=== PATIENT | male | born 1960 | race African-American/Black ===

== ENCOUNTER 2019-09-05 09:31 | Inpatient (IN) | payer OTHER ==
[2019-09-05 10:09] VITALS: BMI 23.1
--- NOTE | 2019-09-05 11:11 | HP ---
CIWA Score Nausea/Vomitin-Mild Nausea/No Vomiting Muscle Tremors: 1-None Visible, but [place] Anxiety: 4-Mod. Anxious/Guarded Agitation: 4-Moderately Restless Paroxysmal Sweats: 4-Forehead w/Sweat Beads Orientation: 1-Uncertain about Date Tacttile Disturbances: 0-None Auditory Disturbances: 0-None Visual Disturbances: 0-None Headache: 2-Mild CIWA-Ar Total Score: 17 - Admission Criteria OASAS Guidelines: Admission for Medically Managed Detox: Requires at least one of the followin. CIWA greater than 12 2. Seizures within the past 24 hours 3. Delirium tremens within the past 24 hours 4. Hallucinations within the past 24 hours 5. Acute intervention needed for co occurring medical disorder 6. Acute intervention needed for co occurring psychiatric disorder 7. Severe withdrawal that cannot be handled at a lower level of care (continued vomiting, continued diarrhea, abnormal vital signs) requiring intravenous medication and/or fluids 8. Admitting History and Physical - Admission Chief Complaint: "I need help to get off the alcohol and crack that he is using with juan dust" History of Present Illness: 59 year old black male with alcohol dependence with uncomplicated withdrawals. He has been drinking up to 1 pint of alcohol, rum, daily with almost daily blackouts. He is using crack intranasally up to $900 daily, last used yesterday. He smokes ciggarettes 2-3 per day, last smoked today. He is smoking marijuana 1/8 gm per day, $40 daily. PMH: HIV Disease on medications Biktarvy Psurg: None Psych: None. He receives HASA and is a resident in a detention. History Source: Patient Limitations to Obtaining History: No Limitations Admission [facility] Chief Complaint: "I need help to get off the alcohol and crack that he is using with juan dust" Allergies/Adverse Reactions: Allergies Allergy/AdvReac Type Severity Reaction Status Date / Time No Known Allergies Allergy Verified 09/05/19 09:57 History of Present Illness: 59 year old black male with alcohol dependence with uncomplicated withdrawals. He has been drinking up to 1 pint of alcohol, rum, daily with almost daily blackouts. He is using crack intranasally up to $900 daily, last used yesterday. He smokes ciggarettes 2-3 per day, last smoked today. He is smoking marijuana 1/8 gm per day, $40 daily. PMH: HIV Disease on medications Biktarvy Psurg: None Psych: None. He receives HASA and is a resident in a detention. - Ebola screening Have you traveled outside of the country in the last 21 days: No Have you had contact with anyone from an Ebola affected area: No Have you been sick,other than usual withdrawal symptoms: No Do you have a fever: No - Review of Systems Constitutional: Chills, Diaphoresis EENT: reports: No Symptoms Reported Respiratory: reports: No Symptoms reported Cardiac: reports: No Symptoms Reported GI: reports: Nausea, Vomiting : reports: No Symptoms Reported Musculoskeletal: reports: No Symptoms Reported Integumentary: reports: No Symptoms Reported Neuro: reports: No Symptoms reported Endocrine: reports: No Symptoms Reported Hematology: reports: No Symptoms Reported Psychiatric: reports: No Sypmtoms Reported Other Systems: Reviewed and Negative Patient History - Patient Medical History Hx Anemia: No Hx Asthma: No Hx Chronic Obstructive Pulmonary Disease (COPD): No Hx Cancer: No Hx Cardiac Disorders: No Hx Congestive Heart Failure: No Hx Hypertension: No Hx Hypercholesterolemia: No Hx Pacemaker: No HX Cerebrovascular Accident: No Hx Seizures: No Hx Dementia: No Hx Diabetes: No Hx Gastrointestinal Disorders: No Hx Liver Disease: No Hx Genitourinary Disorders: No Hx Sexually Transmitted Disorders: No Hx Renal Disease (ESRD): No Hx Thyroid Disease: No Hx Human Immunodeficiency Virus (HIV): Yes (on Biktarvy) Hx Hepatitis C: No Hx Depression: No Hx Suicide Attempt: No Hx Bipolar Disorder: No Hx Schizophrenia: No - Patient Surgical History Past Surgical History: No - PPD History Previous Implant?: Yes Documented Results: Negative w/o proof Implanted On Prior [facility] Admission?: No Date: 05/15/19 Results: negative PPD to be Administered?: Yes - Smoking Cessation Smoking history: Current every day smoker Have you smoked in the past 12 months: Yes Aproximately how many cigarettes per day: 3 Hx Chewing Tobacco Use: No Initiated information on smoking cessation: Yes 'Breaking Loose' booklet given: 09/05/19 - Substances abused Crack Substance route: Smoking Frequency: Daily Amount used: $300-400 Age of first use: 22 Date of last use: 09/05/19 Alcohol Substance route: Oral Frequency: Daily Amount used: 5th slovenian rum Age of first use: 19 Date of last use: 09/04/19 Other Other (specify): Juan granados Substance route: Smoking Frequency: 1-3 times last 30 days Amount used: 1 bags Age of first use: 18 Date of last use: 09/04/19 Admission Physical Exam [facility] - Vital Signs Vital Signs: Vital Signs - 24 hr 09/05/19 09:57 Temperature 98.2 F Pulse Rate 90 Respiratory 20 Rate Blood Pressure 132/87 - Physical General Appearance: Yes: Mild Distress HEENTM: Yes: EOMI, Hearing grossly Normal, Normal ENT Inspection, Normocephalic , Normal Voice, DANIAL, Pharynx Normal, Tm's normal Neck: Yes: No masses,lesions,Nodules, Supple, Trachea in good position Breast: Yes: Within Normal Limits Abdominal: Yes: Normal Bowel Sounds, Non Tender, Flat, Soft Genitourinary: Yes: Within Normal Limits Back: Yes: Normal Inspection Musculoskeletal: Yes: full range of Motion, Gait Steady Extremities: Yes: Normal Capillary Refill, Normal Inspection, Normal Range of Motion, Non-Tender Neurological: Yes: material planner II-XII NML intact, Fully Oriented, Alert, Motor Strength 5/5, Normal Mood/Affect, Normal Response Integumentary: Yes: Normal Color, Warm Lymphatic: Yes: Within Normal Limits - Diagnostic (1) Alcohol dependence with withdrawal Current Visit: Yes Status: Acute (2) HIV disease Current Visit: Yes Status: Acute (3) Marijuana abuse Current Visit: Yes Status: Acute (4) Cocaine use disorder Current Visit: Yes Status: Acute Screened but not Admitted - Documentation of Visit Screened but not Admitted: No Breathalyzer - Breathalyzer Breathalyzer: 0 Vital Signs - Vital Signs Vital signs refused: No Urine Drug Screen - Test Device Lot number: [id number] Expiration date: 04/13/21 - Control Is test valid?: Yes - Results Drug screen NEGATIVE: No Urine drug screen results: THC-Marijuana, AMNA-Cocaine Inpatient Rehab Admission - Rehab Decision to Admit Inpatient rehab admission?: No
[2019-09-05] MEDS ORDERED: MAGNESIUM CITRATE 300 ML BOTTLE PO PRN (11:24)
[2019-09-05] MEDS ORDERED: BISMUTH SUBSALICYLATE 524 MG/30 ML UD PO PRN (11:24)
[2019-09-05] MEDS ORDERED: ACETAMINOPHEN 325 MG TABLET (FP) PO PRN (11:24)
[2019-09-05] MEDS ORDERED: MAG HYDROX/AL HYDROX/SIMETH 30 ML UNIT-DOSE CUP PO PRN (11:24)
[2019-09-05] MEDS ORDERED: MENTHOL/PHENOL 1 EACH UD MM PRN (11:24)
[2019-09-05] MEDS ORDERED: chlordiazePOXIDE HCL 10 MG CAPSULE PO PRN (11:24)
[2019-09-05] MEDS ORDERED: MAGNESIUM HYDROX 2400MG/30ML ORAL SUSPENSION 30 ML CUP PO PRN (11:24)
[2019-09-05] MEDS ORDERED: IBUPROFEN 400 MG TABLET (FP) PO PRN (11:24)
[2019-09-05] MEDS ORDERED: hydrOXYzine PAMOATE 25 MG CAPSULE (FP) PO PRN (11:24)
[2019-09-05] MEDS: chlordiazePOXIDE HCL 25 MG CAPSULE PO SCH ×2 (13:23→22:22)
[2019-09-05 14:34] LABS: HEMATOCRIT 46.6 % (35.4-49); HEMOGLOBIN 15.7 GM/dL (11.7-16.9); MCHC 33.6 g/dl (32.0-35.9); MEAN CELL VOLUME 89.3 fl (80-96); PLATELET COUNT 266 K/MM3 (134-434); RBC 5.22 M/mm3 (4.00-5.60); RDW 13.8 % (11.9-15.9); WHITE BLOOD COUNT 13.1 K/mm3 (4.0-10.0)
[2019-09-05 14:49] LABS: ALBUMIN 4.2 g/dl (3.4-5.0); BILIRUBIN,TOTAL 0.9 mg/dL (0.2-1); BLOOD UREA NITROGEN 22.1 mg/dL (7-18); CALCIUM 9.1 mg/dL (8.5-10.1); CREATININE 1.2 mg/dL (0.55-1.3); POTASSIUM 3.9 mmol/L (3.5-5.1); TOT PROT 8.6 g/dl (6.4-8.2)
[2019-09-05] MEDS: METHOCARBAMOL 500 MG TABLET PO PRN (20:01)
[2019-09-05] MEDS: MELATONIN 5 MG TABLETS PO PRN (22:22)
[2019-09-05] MEDS: THIAMINE HCL 100 MG TABLET (FP) PO SCH (22:22)
[2019-09-06] MEDS: chlordiazePOXIDE HCL 25 MG CAPSULE PO SCH ×3 (05:17→21:05)
[2019-09-06] MEDS: METHOCARBAMOL 500 MG TABLET PO PRN (05:23)
[2019-09-06] MEDS: BICTEGRAV/EMTRICIT/TENOFOV (BIKTARVY) 50-200-25 MG TABLET PO SCH (08:00)
[2019-09-06] MEDS: ACETAMINOPHEN 325 MG TABLET (FP) PO PRN ×2 (08:40→22:23)
[2019-09-06] MEDS: PRENATAL VITAMINS W/ FOLIC ACID TABLET (FP) PO SCH (09:48)
[2019-09-06] MEDS: NICOTINE 7 MG/24 HOURS TOPICAL PATCH TD SCH (09:48)
--- NOTE | 2019-09-06 10:28 | PN ---
[facility] CIWA - CIWA Score Nausea/Vomitin-Mild Nausea/No Vomiting Muscle Tremors: 2 Anxiety: 2 Agitation: 2 Paroxysmal Sweats: 2 Orientation: 0-Oriented Tacttile Disturbances: 1-Very Mild Itch/Numbness Auditory Disturbances: 0-None Visual Disturbances: 0-None Headache: 2-Mild CIWA-Ar Total Score: 12 S Progress Note (SOAP) Subjective: doing well with librium detox regimen ambulating on hallway report taking neutrontin for neurogenic pain health underwriter call [phone] no record found health underwriter call [phone] no answer health underwriter call [phone] # 2 no record begin 100 mg po tid may gradually increase as supportive detox therapy Objective: 09/06/19 10:28 Vital Signs Temperature 96.4 F L 09/06/19 09:33 Pulse Rate 69 09/06/19 09:33 Respiratory Rate 18 09/06/19 09:33 Blood Pressure 113/73 09/06/19 09:33 O2 Sat by Pulse Oximetry (%) Laboratory Last Values WBC 13.1 K/mm3 (4.0-10.0) H 09/05/19 12:10 RBC 5.22 M/mm3 (4.00-5.60) 09/05/19 12:10 Hgb 15.7 GM/dL (11.7-16.9) 09/05/19 12:10 Hct 46.6 % (35.4-49) 09/05/19 12:10 MCV 89.3 fl (80-96) 09/05/19 12:10 MCH 30.0 pg (25.7-33.7) 09/05/19 12:10 MCHC 33.6 g/dl (32.0-35.9) 09/05/19 12:10 RDW 13.8 % (11.9-15.9) 09/05/19 12:10 Plt Count 266 K/MM3 (134-434) 09/05/19 12:10 MPV 9.0 fl (7.5-11.1) 09/05/19 12:10 Sodium 136 mmol/L (136-145) 09/05/19 12:10 Potassium 3.9 mmol/L (3.5-5.1) 09/05/19 12:10 Chloride 101 mmol/L (98-107) 09/05/19 12:10 Carbon Dioxide 24 mmol/L (21-32) 09/05/19 12:10 Anion Gap 11 MMOL/L (8-16) 09/05/19 12:10 BUN 22.1 mg/dL (7-18) H 09/05/19 12:10 Creatinine 1.2 mg/dL (0.55-1.3) 09/05/19 12:10 Est GFR (CKD-EPI)AfAm 76.79 09/05/19 12:10 Est GFR (CKD-EPI)NonAf 66.26 09/05/19 12:10 Random Glucose 97 mg/dL (74-106) 09/05/19 12:10 Calcium 9.1 mg/dL (8.5-10.1) 09/05/19 12:10 Total Bilirubin 0.9 mg/dL (0.2-1) 09/05/19 12:10 AST 43 U/L (15-37) H 09/05/19 12:10 ALT 27 U/L (13-61) 09/05/19 12:10 Alkaline Phosphatase 62 U/L (45-117) 09/05/19 12:10 Total Protein 8.6 g/dl (6.4-8.2) H 09/05/19 12:10 Albumin 4.2 g/dl (3.4-5.0) 09/05/19 12:10 RPR Titer Nonreactive (NONREACTIVE) 09/05/19 12:10 lab noted Assessment: 09/06/19 10:28 alcohol withdrawal sx Plan: continue librium detox regimen
[2019-09-06] MEDS ORDERED: GABAPENTIN 100 MG CAPSULE (FP) PO ONE (10:29)
[2019-09-06] MEDS: GABAPENTIN 100 MG CAPSULE (FP) PO SCH ×2 (13:28→21:05)
[2019-09-06] MEDS: THIAMINE HCL 100 MG TABLET (FP) PO SCH (21:05)
[2019-09-06] MEDS: MELATONIN 5 MG TABLETS PO PRN (21:06)
[2019-09-07] MEDS ORDERED: chlordiazePOXIDE 5 MG CAPSULE PO SCH (05:00)
[2019-09-07] MEDS: GABAPENTIN 100 MG CAPSULE (FP) PO SCH (05:59)
[2019-09-07] MEDS: ACETAMINOPHEN 325 MG TABLET (FP) PO PRN (06:03)
[2019-09-07] MEDS: BICTEGRAV/EMTRICIT/TENOFOV (BIKTARVY) 50-200-25 MG TABLET PO SCH (07:05)
[2019-09-07 09:12] VITALS: BP 126/78; PULSE 86; TEMP 97.1
[2019-09-07] MEDS: PRENATAL VITAMINS W/ FOLIC ACID TABLET (FP) PO SCH (09:48)
[2019-09-07] MEDS: NICOTINE 7 MG/24 HOURS TOPICAL PATCH TD SCH (09:48)
[2019-09-07] MEDS: METHOCARBAMOL 500 MG TABLET PO PRN (09:49)
--- NOTE | 2019-09-07 19:29 | DS ---
[facility] Detox Discharge Summary Admission Date: 09/05/19 Discharge Date: 09/07/19 - History Present History: Alcohol Dependence, Cannabis Dependence, Cocaine Dependence Additional Comments: DESPITE EFFORTS BY PERSONAL SECURITY SPECIALIST AND BY NURSING STAFF TO ADDRESS PATIENT'S MEDICAL NEEDS / CONCERNS, PATIENT DOES NOT WISH TO REMAIN TO COMPLETE DETOX REGIMEN. RISKS OF LEAVING DETOX UNIT AGAINST MEDICAL ADVICE AND PRIOR TO COMPLETION OF DETOX REGIMEN EXPLAINED TO PATIENT. PATIENT ADVISED TO GO IMMEDIATELY TO NEAREST ER SHOULD ANY INTOLERABLE WITHDRAWAL / DETOX SYMPTOMS DEVELOP AT ANY TIME. PATIENT LEAVING DETOX UNIT BEFORE REPEAT CBC CAN BE DONE FOR ELEVATED WBC LEVEL NOTED ON DETOX ADMISSION LABORATORY ASSESSMENT. PATIENT ADVISED TO FOLLOW-UP SOON POSSIBLE WITH GREEN PIPEFITTER FOR THIS MATTER AFTER LEAVING DETOX UNIT. PATIENT VERBALIZED UNDERSTANDING OF ALL INFORMATION / RECOMMENDATIONS PRESENTED TO HIM PRIOR TO DEPARTURE FROM DETOX UNIT. Pertinent Past History: H.I.V., Leukocytosis, Elevated AST Level. - Physical Exam Results Vital Signs: Vital Signs Temperature 97.1 F L 09/07/19 09:11 Pulse Rate 86 09/07/19 09:11 Respiratory Rate 18 09/07/19 09:11 Blood Pressure 126/78 09/07/19 09:11 O2 Sat by Pulse Oximetry (%) Pertinent Admission Physical Exam Findings: WITHDRAWAL SYMPTOMS. Laboratory Tests 09/05/19 09/05/19 09/05/19 12:10 12:10 12:10 WBC 13.1 H RBC 5.22 Hgb 15.7 Hct 46.6 MCV 89.3 MCH 30.0 MCHC 33.6 RDW 13.8 Plt Count 266 MPV 9.0 Sodium 136 Potassium 3.9 Chloride 101 Carbon Dioxide 24 Anion Gap 11 BUN 22.1 H Creatinine 1.2 Est GFR (CKD-EPI)AfAm 76.79 Est GFR (CKD-EPI)NonAf 66.26 Random Glucose 97 Calcium 9.1 Total Bilirubin 0.9 AST 43 H ALT 27 Alkaline Phosphatase 62 Total Protein 8.6 H Albumin 4.2 RPR Titer Nonreactive LABS NOTED. - Medication Discharge Medications: Ambulatory Orders Bictegrav/Emtricit/Tenofov Ala [Biktarvy 50-200-25 mg Tablet] 1 each PO DAILY - Diagnosis (1) Alcohol dependence with withdrawal Status: Acute Qualifiers: Complication of substance-induced condition: uncomplicated Qualified Code(s ): F10.230 - Alcohol dependence with withdrawal, uncomplicated (2) Cocaine use disorder Status: Acute (3) HIV disease Status: Acute (4) Marijuana abuse Status: Acute - AMA Did Patient Leave Against Medical Advice: Yes (PATIENT DID NOT WISH TO REMAIN TO COMPLETE DETOX REGIMEN.) S CIWA - CIWA Score Nausea/Vomitin-No Nausea/No Vomiting Muscle Tremors: 2 Anxiety: 3 Agitation: 3 Paroxysmal Sweats: No Perspiration Orientation: 0-Oriented Tacttile Disturbances: 1-Very Mild Itch/Numbness Auditory Disturbances: 0-None Visual Disturbances: 0-None Headache: 2-Mild CIWA-Ar Total Score: 11
[2019-09-08] MEDS ORDERED: chlordiazePOXIDE HCL 10 MG CAPSULE PO PRN
[2019-09-08] MEDS ORDERED: chlordiazePOXIDE HCL 10 MG CAPSULE PO SCH (05:00)
[2019-09-09] MEDS ORDERED: chlordiazePOXIDE HCL 10 MG CAPSULE PO ONE (05:00)
== END 2019-09-07 11:24 | disposition left against medical advice (07) | DRG 770 ==
LOC: YASAS 09:31 → Y3N 12:07
PROVIDERS: ADMIT Allergy & Immunology; ATTEND Allergy & Immunology
PROC: HZ2ZZZZ Detoxification Services for Substance Abuse Treatment (ICD-10-PCS; principal; 2019-09-05)
DX: F10.230 Alcohol dependence with withdrawal, uncomplicated (principal); F14.20 Cocaine dependence, uncomplicated; F12.10 Cannabis abuse, uncomplicated; Z21 Asymptomatic human immunodeficiency virus [HIV] infection status; F17.210 Nicotine dependence, cigarettes, uncomplicated
CPT/HCPCS: 36415; 80053; 85027; 86593